=== PATIENT | female | born 1950 | race Hispanic/Latino ===

== ENCOUNTER 2021-08-03 07:50 | Day surgery (SDC) | payer OTHER ==
--- NOTE | 2021-07-30 14:23 | RAD REPORT ---
EXAM DESCRIPTION: RAD - Chest Pa And Lat (2 Views) - 07/30/2021 2:16 pm CLINICAL HISTORY: PREOP, pending right breast mass removal, diabetes COMPARISON: November 2016 TECHNIQUE: Frontal and lateral views of the chest were obtained. FINDINGS: The lungs are clear. Interstitial pattern matches comparison. No failure or volume overlo ad. Diaphragmatic eventration again noted. Heart size is normal and central vasculature is within nor mal limits. Costophrenic angle blunting has not changed. No pleural effusion suspected and no pneumot horax seen. No acute bony finding noted. No aortic abnormality. IMPRESSION: No acute cardiopulmonary process. No significant change from comparison study.
[2021-07-30 14:51] LABS: Hematocrit 35.5 % (36.0-45.0); Lymphocytes % 34.9 % (15.3-44.8); MPV 9.2 fL (7.6-11.3); RBC Red Blood Cell Count 3.92 M/uL (3.86-4.86)
[2021-07-30 15:18] LABS: Potassium 3.4 mmol/L (3.5-5.1)
[2021-08-03] MEDS ORDERED: NA CHLORIDE 0.9% 1,000 ML ONE (08:00)
[2021-08-03] MEDS ORDERED: CEFAZOLIN SODIUM 1 GM/VIAL ONE (09:57)
[2021-08-03] MEDS ORDERED: MIDAZOLAM HCL 2 MG/2 ML INJ ONE (09:58)
[2021-08-03] MEDS ORDERED: LIDOCAINE 1% MPF 5 ML VIAL ONE (09:58)
[2021-08-03] MEDS ORDERED: propofoL 200 MG/20 ML VIAL IV ONE (09:58)
[2021-08-03] MEDS ORDERED: FENTANYL CITR 100 MCG/2 ML ONE (09:58)
[2021-08-03] MEDS ORDERED: BUPIVACAINE 0.5% PF 10 ML VIAL ONE (10:16)
[2021-08-03] MEDS ORDERED: EPHEDRINE SULF 50 MG/ML VIAL ONE (10:25)
[2021-08-03] MEDS ORDERED: NS 0.9% VIAL 10 ML ONE (10:25)
[2021-08-03] MEDS ORDERED: dexAMETHasone 10 MG/ML VIAL ONE (10:32)
[2021-08-03] MEDS ORDERED: KETOROLAC 30 MG/ML INJ ONE (10:32)
[2021-08-03] MEDS ORDERED: ONDANSETRON 4 MG/2 ML VIAL ONE (10:41)
--- NOTE | 2021-08-03 10:49 | P.BOP ---
Preoperative diagnosis: right breast lumpectomy Postoperative diagnosis: same Primary procedure: Right breast lumpectomy needle localized Estimated blood loss: <10cc Specimen: right breast lesion with intact wire Findings: lesion within the specimen by Dr Schumacher Anesthesia: General Complications: None Transferred to: Recovery Room Condition: Good
[2021-08-03 11:40] VITALS: TEMP 97
[2021-08-03] MEDS ORDERED: CODEINE 30MG/APAP 300MG TAB ONE (12:29)
[2021-08-03 14:04] VITALS: BP 139/69; O2SAT 98
== END 2021-08-03 13:51 | disposition home or self-care (01) ==
LOC: OR 07:50
PROVIDERS: ATTEND Surgery
PROC: 0HBT0ZZ Excision of Right Breast, Open Approach (ICD-10-PCS; principal; 2021-08-03 10:30)
DX: D05.11 Intraductal carcinoma in situ of right breast (principal); Z20.822 Contact with and (suspected) exposure to COVID-19
CPT/HCPCS: 93005; 85025; 80048; 36415; 82947 ×2; 88307; 71046; 19301; U0003; J2704; J2250; J3010; J1100; J7030; J2405; J0690